=== PATIENT | male | born 1965 | race Caucasian/White ===

== ENCOUNTER 2019-09-19 05:29 | Day surgery (SDC) ==
[2019-09-11 14:01] LABS: INR 0.91; PROTIME 12.4 Seconds (11.0-16.0)
[2019-09-11 14:03] LABS: HEMATOCRIT 42.6 % (42.0-52.0); HEMOGLOBIN 13.8 g/dL (14.0-18.0); MCH 30.4 PG (27-31); MCHC 32.4 g/dL (33-37); MCV 93.8 FL (81-99); MPV 9.8 FL (7.4-10.4); RBC 4.54 XMIL (4.7-6.1); RDW 13.7 % (11.5-14.5); WBC 6.71 X1000 (4.8-10.8)
[2019-09-11 14:06] LABS: AGAP 9; BUN 12 mg/dL (8-22); CALCIUM 9.1 mg/dL (8.8-10.2); CHLORIDE 102 mmol/L (98-107); COSMO 275; CREATININE 0.8 mg/dL (0.7-1.2); ESTIMATED GFR > 60; GLUCOSE 96 mg/dL (70-104); POTASSIUM 4.9 mmol/L (3.5-5.1); SODIUM 138 mmol/L (136-145); TCO2 27 mmol/L (25-35)
[2019-09-19] MEDS ORDERED: PEPCID ONE (05:52)
[2019-09-19] MEDS ORDERED: REGLAN ONE (05:52)
[2019-09-19] MEDS ORDERED: LR 1,000 ML ONE ×2 (05:52→06:44)
[2019-09-19] MEDS ORDERED: KEFZOL 1 GM/D5W 2 GM/100 ML IVPB ONE (05:52)
[2019-09-19] MEDS ORDERED: DIPRIVAN 1% ONE (06:19)
[2019-09-19] MEDS ORDERED: VERSED ONE (06:23)
[2019-09-19] MEDS ORDERED: SENSORCAINE 0.5%-EPI 1:200,000 ONE (06:44)
[2019-09-19] MEDS ORDERED: B & O 16A SUPP ONE (06:44)
[2019-09-19] MEDS ORDERED: ZOFRAN ONE (06:57)
[2019-09-19 07:35] LABS: URINE SOURCE CATH
[2019-09-19 07:39] LABS: BILIRUBIN URINE NEGATIVE (NEGATIVE); BLOOD URINE NEGATIVE (NEGATIVE); COLOR STRAW; GLUCOSE URINE NEGATIVE (NEGATIVE); KETONE URINE NEGATIVE (NEGATIVE); LEUKOCYTES URINE NEGATIVE (NEGATIVE); NITRITE URINE NEGATIVE (NEGATIVE); PROTEIN URINE NEGATIVE (NEGATIVE); SP GRAVITY URINE 1.008; TURBIDITY URINE CLEAR (CLEAR); UROBILINOGEN URINE NORMAL (NORMAL)
[2019-09-19 07:41] LABS: UR EPITHELIAL CELLS <10 /HPF (<10); URINE BACTERIA NEGATIVE /HPF; URINE RBC <10 /HPF (<10); URINE WBC <10 /HPF (<10)
[2019-09-19] MEDS ORDERED: OFIRMEV 1000 MG/ISOTONIC SOLN 1,000 MG/100 ML BOTTLE ONE (08:04)
[2019-09-19] MEDS ORDERED: FENTANYL ONE (08:52)
[2019-09-19] MEDS ORDERED: DEMEROL ONE (09:27)
[2019-09-19] MEDS: DILAUDID ONE ×2 (09:51→10:17)
[2019-09-19] MEDS ORDERED: DITROPAN ONE (10:16)
[2019-09-19] MEDS ORDERED: D5 1/2 NS 1,000 ML ONE (10:36)
[2019-09-19] MEDS ORDERED: MORPHINE IV PRN (11:51)
[2019-09-19] MEDS ORDERED: ZOFRAN IV PRN (12:00)
[2019-09-19] MEDS ORDERED: PHENERGAN PO PRN (12:00)
[2019-09-19] MEDS ORDERED: TYLENOL PO PRN (12:00)
[2019-09-19] MEDS ORDERED: SODIUM CHLORIDE 0.9% INJ PRN (12:00)
[2019-09-19] MEDS ORDERED: NORCO-7.5 PO PRN (12:00)
[2019-09-19] MEDS ORDERED: NORCO-10 PO PRN (12:00)
[2019-09-19] MEDS ORDERED: DILAUDID IV PRN (12:00)
[2019-09-19] MEDS ORDERED: DITROPAN PO PRN (12:00)
[2019-09-19] MEDS ORDERED: BENADRYL LIQUID PO PRN (12:00)
[2019-09-19] MEDS: D5 1/2 NS 1,000 ML IV SCH ×2 (12:00→23:27)
[2019-09-19] MEDS ORDERED: PHENERGAN IV PRN (12:00)
[2019-09-19] MEDS ORDERED: NORCO-5 PO PRN (12:00)
[2019-09-19] MEDS ORDERED: PHENERGAN PR PRN (12:00)
[2019-09-19] MEDS ORDERED: LABETALOL IV PRN (12:00)
[2019-09-19] MEDS ORDERED: OFIRMEV 1000 MG/ISOTONIC SOLN 1,000 MG/100 ML BOTTLE IV PRN (14:30)
[2019-09-19] MEDS: KEFZOL 2 GM/D5W 2 GM/50 ML IVPB IV SCH (15:40)
[2019-09-19] MEDS: COLACE PO SCH (23:27)
[2019-09-19] MEDS: PERIDEX MT SCH (23:27)
[2019-09-20] MEDS: KEFZOL 2 GM/D5W 2 GM/50 ML IVPB IV SCH (04:08)
[2019-09-20 07:11] LABS: HEMATOCRIT 31.1 % (42.0-52.0); HEMOGLOBIN 10.1 g/dL (14.0-18.0); MCH 30.5 PG (27-31); MCHC 32.5 g/dL (33-37); MPV 10.1 FL (7.4-10.4); RBC 3.31 XMIL (4.7-6.1); RDW 13.4 % (11.5-14.5); WBC 5.88 X1000 (4.8-10.8)
[2019-09-20 07:34] LABS: AGAP 9; BUN 9 mg/dL (8-22); CALCIUM 8.1 mg/dL (8.8-10.2); CHLORIDE 100 mmol/L (98-107); COSMO 271; CREATININE 0.8 mg/dL (0.7-1.2); ESTIMATED GFR > 60; GLUCOSE 132 mg/dL (70-104); POTASSIUM 3.9 mmol/L (3.5-5.1); SODIUM 135 mmol/L (136-145); TCO2 26 mmol/L (25-35)
[2019-09-20 07:53] VITALS: BP 123/83
[2019-09-20] MEDS: COLACE PO SCH (09:08)
[2019-09-20] MEDS: PERIDEX MT SCH (09:08)
--- NOTE | 2019-09-20 11:35 | OPERATIVE NOTE ---
PROCEDURE DATE: 09/19/2019 SURGEON: Dr. Loinel Jorge. PREOPERATIVE DIAGNOSES: 1. 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 2. Elevated prostate-specific antigen. POSTOPERATIVE DIAGNOSES: 1. 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 2. Elevated prostate-specific antigen. PROCEDURE NAME: 1. Robotic-assisted laparoscopic prostatectomy. 2. Bilateral pelvic lymph node dissection. 3. Laparoscopic urethral suspension. INDICATIONS: A 54-year-old male with history of rising PSA, who underwent biopsy which revealed multifocal Jennifer 7 prostate adenocarcinoma. He was counseled on the treatment options and wants to proceed with a prostatectomy with pelvic lymph node dissection. He was educated on long-term complications such as urinary incontinence and erectile dysfunction. He has baseline erectile dysfunction and uses sildenafil already. FINDINGS: Watertight vesicourethral anastomosis at 240 mL. DESCRIPTION OF PROCEDURE: After obtaining informed consent, the patient was brought to the operating room. Perioperative antibiotics and general endotracheal anesthesia were administered. He was placed in lithotomy position, prepped and draped in sterile fashion. We attempted to introduce an 18-Romansh Whitney catheter which would not go in easily and that prompted us to introduce an 18-Romansh Whitney catheter. His bladder was drained. I made a small incision in his umbilicus with a 15 blade followed by introduction of Veress needle connected to a saline-filled syringe. I confirmed positive drop test followed by aspiration of fluid from the syringe revealing no evidence of GI contents or blood. I then insufflated his abdominal cavity to 15 mmHg. The trocar sites were demarcated in a standard prostatectomy fashion. Marcaine with epinephrine was used to anesthetize the local sites. This was followed by making an incision with Bovie electrocautery at the supraumbilical level. The trocar was introduced followed by insertion of a robotic camera. We then placed the rest of the trocars under direct vision as he had no evidence of significant adhesions. Following that, he was placed in steep Trendelenburg position and the robot was docked. Once that was done, I began by making an incision in his peritoneum approximately 3 cm above the rectum. His right vas deferens was identified, dissected and transected, followed by identification of the right seminal vesicle and its dissection. I minimized cautery in order to preserve the neurovascular bundle. We performed the same thing on the left side. I then dissected anterior to vas deferens to the level of the prostate and subsequently posterior to seminal vesicles by incising Denonvilliers' fascia and developing perirectal plane. Following that, we turned attention to the bladder that was dropped by incising lateral to each medial umbilical ligament. Once the space of Retzius was developed, I reflected the fat off of his peripelvic fascia. The fascia was incised laterally and the contour of the prostate was followed. Puboprostatic ligaments were divided sharply. Superficial dorsal venous complex was controlled with bipolar electrocautery. Deep dorsal venous complex was controlled with 0 V-Loc suture in a [id number] fashion with anterior periosteal elevation. Following that, we turned our attention to the bladder neck which was incised with monopolar cautery. Once the Whitney catheter came into the view, it was brought into the field and placed on anterior traction. After that was done, the plane was developed between the bladder and the prostate and dissection continued until vas deferens and seminal vesicles came into the view. Following that, we reflected his neurovascular bundles by using Hem-O-Tosin clips. There was a small amount of bleeding but none that is significant and I wanted to preserve his neurovascular bundle as much as we could. Hence, we left it alone at the time. Once the bundles were reflected, a plane was further developed between the prostate and rectum and ultimately the apex of the prostatic tissue was transected. Because he had disease extending to his apex, I did not per performed maximal urethral preservation technique. The urethra was transected and the prostate was delivered and placed into EndoCatch bag. Hemostasis appeared to be fairly adequate other than slow oozing at the level of the neurovascular bundles. Attention was then turned to perform bilateral pelvic lymph node dissection. We started on the right side. The 4th arm was used to reflect the bladder and perivesical fat medially. I identified the right external iliac vein up to its confluence with the common iliac vein. Lymphatic tissue was grasped and carefully dissected with monopolar scissors. We dissected out the lymphatic tissue at the following landmarks: Pelvic sidewall laterally, perivesical fatty tissue medially, obturator vessels and nerve posteriorly, confluence of the external and internal iliac vein superiorly. The lymphatic tissue was delivered en bloc. Pneumoperitoneal pressure was decreased to 3 mmHg and there was no evidence of active bleeding. We placed a piece of Surgicel Snow hemostatic agent in order to decrease the chance of lymphocele. We then performed the same thing on the left side for the pelvic lymph nodes with identical margins. We also placed Surgicel Snow hemostatic agent and decreased pneumoperitoneal pressure prior to that to confirm no active bleeding. Following that, attention was turned to anastomosis. A 3-0 V-Loc suture was used to reapproximate perivesical and periurethral fascia in a running fashion. The sutures were further saved for future laparoscopic urethral suspension. The formal vesicourethral anastomosis was performed with another V-Loc suture running in a clockwise and counterclockwise fashion and ultimately cross- tying the suture. Following that, a fresh 18-Romansh Whitney catheter was introduced. We then performed laparoscopic urethral suspension by introducing previously placed Carlos sutures and threading them through periosteum lateral to the midline pubis. Once that was done, we decreased pneumoperitoneal pressure and inspected for hemostasis. He had a little bit of oozing at the level of the pedicles and instead of cauterizing them, I elected to place Surgicel Snow hemostatic agent. We then tested the vesicourethral anastomosis by instilling 240 mL of sterile fluid via the new fresh Whitney catheter. There was no evidence of anastomotic leakage. The catheter was placed to gravity drainage. The pneumoperitoneal pressure was decreased one more time to 3 mmHg. There was no evidence of active bleeding. Given the fact that he oozed around his neurovascular bundles, I did place a Ishan drain via his 4th arm, which was secured to the skin with 2-0 nylon. He was then extubated and taken to PACU for further recovery. ESTIMATED BLOOD LOSS: 50 mL. COMPLICATIONS: None. SPECIMEN REMOVED: 1. Labeled as prostate gland. 2. Labeled as pelvic lymph nodes. DRAINS: 1. An 18-Romansh Whitney catheter. 2. Ishan drain. DISPOSITION: To PACU and subsequently to the floor for observation with the Whitney catheter to gravity drainage and Ishan drain to bulb suction. cc: Lionel Jorge MD
== END 2019-09-20 09:54 | disposition other institution (70) ==
LOC: OR 05:29 → 4N 05:29 → MERGE 12:30 → OR 09-20 09:54
PROVIDERS: ATTEND Urology

== ENCOUNTER 2019-09-25 16:38 | Inpatient (IN) ==
[2019-09-25 18:07] LABS: BASO# 0.05 X1000 (0.0-0.2); BASO% 0.3 % (0.0-0.8); HEMATOCRIT 35.7 % (42.0-52.0); HEMOGLOBIN 11.4 g/dL (14.0-18.0); IMM GRAN# 0.05 X1000 (0.0-0.04); IMM GRAN% 0.3 % (0.0-0.5); LYMPH# 0.79 X1000 (1.2-3.4); LYMPH% 4.9 % (20.5-51.1); MCH 29.7 PG (27-31); MCHC 31.9 g/dL (33-37); MONO# 1.49 X1000 (0.11-0.59); MONO% 9.3 % (1.7-9.3); MPV 9.7 FL (7.4-10.4); NEUT# 13.68 X1000 (1.4-6.5); NEUT% 85.2 % (42.2-75.2); PLT 597 X1000 (130-400); RBC 3.84 XMIL (4.7-6.1); WBC 16.06 X1000 (4.8-10.8)
[2019-09-25 18:14] LABS: URINE SOURCE CLEAN CATCH
[2019-09-25 18:19] LABS: UR EPITHELIAL CELLS <10 /HPF (<10); URINE BACTERIA NEGATIVE /HPF; URINE RBC TNTC /HPF (<10); URINE WBC 20-40 /HPF (<10)
[2019-09-25 18:20] LABS: BILIRUBIN URINE NEGATIVE (NEGATIVE); BLOOD URINE LARGE (NEGATIVE); COLOR ORANGE; GLUCOSE URINE NEGATIVE (NEGATIVE); KETONE URINE 10 mg/dL (NEGATIVE); LEUKOCYTES URINE SMALL (NEGATIVE); NITRITE URINE NEGATIVE (NEGATIVE); PROTEIN URINE 100 mg/dL (NEGATIVE); SP GRAVITY URINE 1.022; TURBIDITY URINE HAZY (CLEAR); UROBILINOGEN URINE NORMAL (NORMAL)
[2019-09-25 18:26] LABS: ALB/GLOB RATIO 1.1; ALBUMIN 3.9 g/dL (3.5-5.0); CALCIUM 9.2 mg/dL (8.8-10.2); CREATININE 1.4 mg/dL (0.7-1.2); POTASSIUM 4.7 mmol/L (3.5-5.1); TOTAL BILIRUBIN 0.53 mg/dL (0.20-1.00); TOTAL PROTEIN 7.4 g/dL (6.3-8.3)
[2019-09-25] MEDS ORDERED: ROCEPHIN 1 GM in NS 50 ML IV ONE (18:55)
--- NOTE | 2019-09-25 19:15 | PROVIDER DOCUMENTATION ---
This chart was entered by Nga Patel Scribe, acting as scribe for Severiano Byrne MD. HPI-General Adult - General Source: patient - History of Present Illness -Gen Adult Nature of Presenting Problems: pt is a 54yowm presenting w/ post-op complaint. pt had prostatectomy and lymph node removal last tuesday, was seen by [facility]rology to have catheter removed and last night started to have lower abd pain sharp in nature, dull mid abd pain and burning on sides of abd. pain is intermittent and has had more bleeding around JANES tube and on couch where seated. belching improves pain, drinking/eating and movement worsens pain. pt is able to void small amt and had 2 BMs yest. no fever, cough, cp or sob. pt changed JANES tube 1500. Location of Pain/Injury: reports: abdomen Pain Radiation: reports: no radiation Quality of Pain: reports: burning, dull, sharp Severity: reports: moderate Onset/Duration: reports: last night Timing: reports: still present Context/Activities at Onset: reports: none Modifying Factors: improves with: eating, movement, other (drinking) Associated Symptoms: reports: denies symptoms Recently seen or treated by another doctor?: Yes <Severiano Byrne - Last Filed: 09/25/19 19:12> <Ava Leal - Last Filed: 09/25/19 22:15> - General Stated Complaint: POST OP COMPLAINT Time Seen by Provider: 09/25/19 16:40 Allergies/Adverse Reactions: Patient Allergies Allergy/AdvReac Type Severity Reaction Status Date / Time No Known Allergies Allergy Verified 09/19/19 06:07 Home Medications: Home Medication List Medication Instructions Recorded Confirmed Last Taken Type Multivit-Min/FA/Lycopen/Lutein 1 ea PO QAM 09/11/19 09/25/19 09/18/19 History [Centrum Silver Tablet] Sildenafil Citrate [Viagra] 25 mg PO PRN PRN 09/11/19 09/25/19 09/16/19 History Hydrocodone/Acetaminophen [B[place]vue 1 ea PO Q6HR PRN #20 tab 09/20/19 09/25/19 Unknown Rx 7.5-325 Tablet] Oxybutynin [Ditropan] 5 mg PO TID PRN #15 tab 09/20/19 09/25/19 Unknown Rx Review of Systems - Adult - REVIEW OF SYSTEMS - ADULT Constitutional: reports: see HPI, other (post op complaint). denies: chills, fever, fatique Eyes: reports: no symptoms reported Ears, Nose, Mouth & Throat: reports: no symptoms reported Cardiovascular: reports: no symptoms reported Respiratory: reports: no symptoms reported Gastrointestinal: reports: see HPI, abdominal pain. denies: diarrhea, rectal bleeding, vomiting Genitourinary: reports: no symptoms reported Musculoskeletal: reports: no symptoms reported Integumentary: reports: no symptoms reported Neurological: reports: no symptoms reported Psychiatric: reports: no symptoms reported Endocrine: reports: no symptoms reported Hematologic/Lymphatic: reports: no symptoms reported Allergic/Immunologic: reports: no symptoms reported All Other Systems: Reviewed and Negative <Severiano Byrne - Last Filed: 09/25/19 19:12> Past History - Adult - PAST MEDICAL HISTORY-ADULT Review of Records: reports: Nursing Assessment Review, Medications Reviewed, Social history reviewed & non-contributory. Major Childhood Illnesses: reports: denies history Cardiovascular: reports: denies history Respiratory: reports: denies history Gastrointestinal: reports: denies history Obstetrical/Gynecological: reports: denies history Genitourinary: reports: prostate cancer Musculoskeletal: reports: denies history Neurological: reports: denies history Endocrine/Immune: reports: denies history Other Conditions: reports: denies history - PRIOR SURGERIES/PROCEDURES Surgical/Procedure History: reports: recent surgery, other (prostatectomy, lymph nodes removed 09/19/2019) - IMMUNIZATION STATUS Childhood Immunizations: See Nurse Assessment Flu Vaccine: See Nurse Assessment - FAMILY HISTORY Family History: reviewed, not pertinent - SOCIAL HISTORY Smoking: other (former) Substance Use: alcohol Alcohol Use Frequency: occasionally <Severiano Byrne - Last Filed: 09/25/19 19:12> Physical Exam-General - PHYSICAL EXAM-ADULT Initial Vital Signs Reviewed: Yes - CONSTITUTIONAL General Appearance: alert, mild distress. negative: slow to respond, obtunded, combative - EYES Eyes: PERRL/EOMI - HEAD, EARS, NOSE, MOUTH & THROAT HENMT: normocephalic/atraumatic, moist mucous membranes - NECK Neck: non-tender, full range of motion, supple, normal inspection - RESPIRATORY Respiratory: chest non-tender, lungs clear, normal breath sounds - CARDIOVASCULAR Cardiovascular: normal peripheral pulses, regular rate, rhythm - GASTROINTESTINAL (ABDOMEN) Abdominal Exam: normal bowel sounds, soft, no organomegaly, no pulsatile mass, tenderness (periumbilical, low abd on palp), other (healing sx areas on abd, JANES tube in place RLQ). negative: non tender, abnormal bowel sounds, guarding - MUSCULOSKELETAL Back Exam: normal inspection Extremity: normal range of motion, non-tender, normal inspection - SKIN Integumentary: normal color, normal turgor, warm/dry - NEUROLOGIC Neurologic: grossly normal, no motor/sensory deficits - PSYCHIATRIC Psych/Mental Status: normal mood/affect, normal thought content, normal thought process, oriented x 3 <Severiano Byrne - Last Filed: 09/25/19 19:12> Progress - PLAN OF CARE/RESULTS Result Diagrams: 09/25/19 17:21 09/25/19 17:21 - REASSESSMENT Reassessment #1 Time Reassessed: 17:31 Status: other (pt bladder scan was 439) - CONSULTS/PCP/HOSPITALIST Notification #1 *Consult/PCP/Hospitalist*: Saqib Time Discussed: 17:30 Reason/Comments: no answer #2 Consult: Saqib Time Discussed: 18:16 Reason/Comments: no answer #3 Consult: Saqib Time Discussed: 18:51 Reason/Comments: no answer by 1915 <Severiano Byrne - Last Filed: 09/25/19 19:12> - PLAN OF CARE/RESULTS Progress/Plan/Lab Results: Vital Signs - 8 hr 09/25/19 16:54 09/25/19 18:24 Temperature 98.3 F 97.9 F Pulse Rate 89 85 Respiratory Rate 20 15 Blood Pressure 151/102 133/84 O2 Sat by Pulse Oximetry 100 99 Laboratory Results - last 24 hr 09/25/19 09/25/19 09/25/19 17:21 17:21 17:54 WBC 16.06 H D RBC 3.84 L Hgb 11.4 L Hct 35.7 L MCV 93.0 MCH 29.7 MCHC 31.9 L RDW Std Deviation 13.0 Plt Count 597 H MPV 9.7 Immature Gran % (Auto) 0.3 Neut % (Auto) 85.2 H Lymph % (Auto) 4.9 L Craven % (Auto) 9.3 Eos % (Auto) 0.0 Baso % (Auto) 0.3 Immature Gran # (Auto) 0.05 H Neut # (Auto) 13.68 H Lymph # (Auto) 0.79 L Craven # (Auto) 1.49 H Eos # (Auto) 0.00 Baso # (Auto) 0.05 Sodium 137 Potassium 4.7 Chloride 98 Carbon Dioxide 24 L Anion Gap 15 BUN 18 Creatinine 1.4 H Estimated GFR/1.73 m2 53 BUN/Creatinine Ratio 13 Glucose 136 H D Calculated Osmolality 278 Calcium 9.2 Total Bilirubin 0.53 AST 16 ALT 11 Alkaline Phosphatase 86 Total Protein 7.4 Albumin 3.9 Globulin 3.5 Albumin/Globulin Ratio 1.1 Urine Source CLEAN CATCH Urine Color ORANGE Urine Turbidity HAZY Urine pH 6.0 Ur Specific [place] 1.022 Urine Protein 100 A Ur Glucose (Stick) NEGATIVE Ur Ketones (Stick) 10 A Urine Blood LARGE A Urine Nitrite NEGATIVE Urine Bilirubin NEGATIVE Urobilinogen Dipstick NORMAL Urine Leukocytes SMALL A Urine WBC (Auto) 20-40 A Urine RBC (Auto) TNTC A U Epithel Cells (Auto) <10 Urine Bacteria (Auto) NEGATIVE Orders Category Date Time Status Whitney Cath Insertion ORDERED Care 09/25/19 18:[address] ABD/PELVIS W/IV CONT ONLY [CT] Stat Exams 09/25/19 18:54 Completed CBC WITH DIFF [HEME] Stat Lab 09/25/19 17:21 Completed CMP [COMPREHENSIVE METABOLIC PANEL] [CHEM] Stat Lab 09/25/19 17:21 Completed URINALYSIS W/POSS RFLX CULT [URINALYSIS] Stat Lab 09/25/19 17:54 Completed URINE CULTURE [RM] Routine Lab 09/25/19 17:54 Received CefTRIAXONE [Rocephin] 1 gm Med 09/25/19 18:55 Discontinued 0.9% Sodium Chloride Inj [Ns] 50 ml IV NOW Result Diagrams: 09/25/19 17:21 09/25/19 17:21 - REASSESSMENT Reassessment #2 Time Reassessed: 19:00 Status: other (assumed care of this patient at shift change from Dr. Byrne. Awaiting labs and CT at that time.) Reassessment #3 Time Reassessed: 20:40 Status: unchanged (Patient continues to have pain. Awaiting Whitney placement. Elevated WBC and possible abscess on CT. Paging Dr. Cerrato (Urology) for admit.) Reassessment #4 Time Reassessed: 22:13 Status: other (Spoke with Dr. Cerrato who agrees with the need for admission and will see patient in consultation. Spoke with Dr. Mcconnell who will admit patient) <Ava Leal - Last Filed: 09/25/19 22:15> Departure <Severiano Byrne - Last Filed: 09/25/19 19:12> - Departure Date of Disposition Decision: 09/25/19 Time of Disposition Decision: 22:14 Certified Medical Emergency: Emergent - Critical Care Note This patient required my direct & personal management of CC.: No <Ava Leal - Last Filed: 09/25/19 22:15> - Departure DIAGNOSIS: Status post prostatectomy, Urinary retention Disposition: ADMITTED INPATIENT 09 Condition: Stable Referrals and Follow-Ups: Cristina Bray MD [Primary Care Provider] - Attestation - Physician/ PAT Attestation Patient care was provided by Advanced Practice Provider:: No The physician spent face to face time with patient:: Yes Advanced Practice Provider documentation review:: Supervising physician onsite and consulted in the evaluation and care of this patient. The physician did have a face to face encounter with the patient. <Severiano Byrne - Last Filed: 09/25/19 19:12> - Physician/ PAT Attestation Patient care was provided by Advanced Practice Provider:: No The physician spent face to face time with patient:: Yes Advanced Practice Provider documentation review:: Supervising physician onsite and consulted in the evaluation and care of this patient. The physician did have a face to face encounter with the patient. <Ava Leal - Last Filed: 09/25/19 22:15> This chart was documented by the indicated scribe, (Nga Patel Scribe) and accurately reflects the services I performed and decisions made by me, Severiano Byrne MD, as attested by the provider's signature.
--- NOTE | 2019-09-25 19:43 | Diag Imaging Result Doc PS360 ---
CT ABD/PELVIS W/IV CONT ONLY - 09/25/2019 INDICATION: lower abd pain, post op COMPARISON: None FINDINGS: There is some atelectasis in the lung bases but no infiltrates. Heart size is normal. The liver, gallbladder, spleen, pancreas, adrenals, and kidneys are normal. There is some indistinct free fluid in the lower abdomen and pelvis. The largest area measures about 6.5 x 2.9 cm. This is at the left side of the pelvis. There is a surgical drain entering the right side of the pelvis with the tip in the lower left side. Urinary bladder and rectum are normal. There is some trace soft tissue gas in the pelvis and the left femoral canal. There is mild constipation of the colon proximally. IMPRESSION: 1. Scattered pockets of indistinct fluid in the pelvis. Likely small abscesses. 2. Mild constipation. This exam was performed using automated exposure control, adjustment of mA or kV according to patient size, and/or use of iterative reconstruction technique Electronically signed by Hector Parker 09/25/2019 7:41 PM
[2019-09-25 22:26] LABS: URINE SOURCE CATH
[2019-09-25] MEDS ORDERED: NS 1,000 ML IV ONE (22:41)
[2019-09-25] MEDS ORDERED: PERCOCET-10 PO PRN (22:51)
[2019-09-25] MEDS ORDERED: TYLENOL PO PRN (22:51)
[2019-09-25] MEDS ORDERED: ZOFRAN IV PRN (22:51)
[2019-09-25] MEDS ORDERED: DILAUDID IV PRN (22:51)
[2019-09-25 23:11] LABS: BILIRUBIN URINE NEGATIVE (NEGATIVE); BLOOD URINE LARGE (NEGATIVE); COLOR BROWN; GLUCOSE URINE NEGATIVE (NEGATIVE); KETONE URINE 10 mg/dL (NEGATIVE); LEUKOCYTES URINE SMALL (NEGATIVE); NITRITE URINE NEGATIVE (NEGATIVE); PROTEIN URINE 100 mg/dL (NEGATIVE); TURBIDITY URINE TURBID (CLEAR); UR EPITHELIAL CELLS <10 /HPF (<10); URINE BACTERIA NEGATIVE /HPF; URINE RBC TNTC /HPF (<10); URINE WBC TNTC /HPF (<10); UROBILINOGEN URINE NORMAL (NORMAL)
[2019-09-25 23:19] LABS: SP GRAVITY URINE 1.015; URINE CASTS NONE SEEN; URINE CRYSTALS NONE SEEN; URINE SMALL ROUND CELLS NONE SEEN; URINE YEAST PRESENT
--- NOTE | 2019-09-25 23:22 | HISTORY AND PHYSICAL ---
REASON FOR ADMISSION: Two-day history of lower abdominal pain. HISTORY OF PRESENT ILLNESS: Mr. Deng De La Vega is a 54-year-old white male with past medical history of prostate cancer, status post prostatectomy a week ago, hyperlipidemia and reflux disease. He came in today complaining of a 2-day history of suprapubic pain which is intermittent, crampy, nonradiating. No specific aggravating or relieving factors. The following day he said the pain started ascending to his umbilical area and the intensity has increased. It still had the same intermittent nature. He also complains of no dysuria, but said that he had to strain to urinate, and did admit to having bloody urine. He admits to having chills but no fever. No flank pain. No GI complaints other than infrequent stooling. No nausea, vomiting or headaches. No cardiorespiratory complaints. No arthralgia or rash. REVIEW OF SYSTEMS: Twelve-system review was done. Positive findings per HPI. ALLERGIES: No known allergies. HOME MEDICATIONS: He was on Ditropan 5 mg t.i.d.; hydrocodone 10 mg q.6 p.r.n.; Viagra 25 mg p.r.n.; multivitamin tablets once a day. PAST SURGICAL HISTORY: Prostatectomy, tonsillectomy. FAMILY HISTORY: He was adopted. SOCIAL HISTORY: He drinks about 4-5 beers a day and 2 drinks of rum and Coke. DIAGNOSTIC DATA: CT scan of the abdomen and pelvis showed scattered pockets of indistinct fluid in the pelvis, likely small abscesses, and mild constipation. LABORATORY DATA: White count 6000, hemoglobin and hematocrit 11 and 35, platelets 597,000, 85% neutrophils. BUN is 18, creatinine 1.4. Glucose 136. Urinalysis: Large blood, small leukocytes, adj-ivunqpga-bj-count RBCs, and 20-40 WBCs. PHYSICAL EXAMINATION: VITAL SIGNS: Blood pressure 138/89, heart rate 80, respiratory rate is 18, temperature is 98.7 degrees. He is 999% on room air. GENERAL: He is a pleasant, middle-aged white man who is not in acute distress. He is alert and oriented x3. Normal mood and affect. HEENT: Head is normocephalic, atraumatic. Eyes: YOSSI, EOMI. He is anicteric, not pale. ENT and oropharynx exam shows moderate xerostomia, but no exudates or erythema. No central cyanosis. NECK: Supple. No JVD or carotid bruit. No thyromegaly. CHEST: Clear when auscultated with good air entry in both lung mohan. CARDIOVASCULAR: First and second heart sounds heard. No gallops, murmurs or rubs. Rhythm is regular. ABDOMEN: Full, soft, with tenderness confined to the suprapubic area. Questionable rebound. The patient has 4 healing incision sites in suprapubic area and left and right lower quadrant areas. He also has a JANES drain, draining bloody fluid. Bowel sounds are hypoactive. RECTAL: Exam deferred at this time. EXTREMITIES: Distal pulse volumes regular, symmetrical. No edema, clubbing or peripheral cyanosis. NEUROLOGIC: No gross focal deficits. SKIN: Intact. No breakdown, lesion or erythema. The patient has decreased skin turgor. MUSCULOSKELETAL: Exam is grossly normal. ASSESSMENT: 1. Urinary retention secondary to postoperative, in addition to probable postoperative pelvic abscesses. 2. Prostate cancer, status post prostatectomy. 3. Reflux disease. 4. Posthemorrhagic anemia. PLAN: The patient will be started on broad-spectrum antibiotics to cover for enteric pathogens and anaerobes. We will treat the patient symptomatically. Hydrate the patient appropriately. The patient is clinically dehydrated, and will be addressed by giving appropriate crystalloids. We will consult: Dr. Cerrato was notified and Dr. Jorge will be consulted. cc: MD Gail Garcia CRNP Lindsay E. Smith, MD
[2019-09-26] MEDS: NS 1,000 ML IV SCH ×3 (00:40→15:20)
[2019-09-26] MEDS: ZOSYN 3.375 GM in NS 50 ML IV SCH ×4 (00:40→20:25)
[2019-09-26] MEDS: PERICOLACE PO SCH ×4 (01:16→20:25)
[2019-09-26 06:57] LABS: BASO# 0.03 X1000 (0.0-0.2); BASO% 0.3 % (0.0-0.8); EOS# 0.06 X1000 (0.0-0.7); EOS% 0.5 % (0.0-10.0); HEMATOCRIT 30.7 % (42.0-52.0); HEMOGLOBIN 9.5 g/dL (14.0-18.0); IMM GRAN# 0.03 X1000 (0.0-0.04); IMM GRAN% 0.3 % (0.0-0.5); LYMPH# 1.47 X1000 (1.2-3.4); LYMPH% 13.2 % (20.5-51.1); MCH 29.2 PG (27-31); MCHC 30.9 g/dL (33-37); MCV 94.5 FL (81-99); MONO% 13.5 % (1.7-9.3); MPV 9.6 FL (7.4-10.4); NEUT# 8.04 X1000 (1.4-6.5); NEUT% 72.2 % (42.2-75.2); PLT 517 X1000 (130-400); RBC 3.25 XMIL (4.7-6.1); WBC 11.13 X1000 (4.8-10.8)
[2019-09-26 07:16] LABS: AGAP 11; ALB/GLOB RATIO 1.2; ALBUMIN 3.1 g/dL (3.5-5.0); ALKALINE PHOSPHATASE 63 U/L (32-122); BUN 15 mg/dL (8-22); CALCIUM 8.4 mg/dL (8.8-10.2); CHLORIDE 106 mmol/L (98-107); COSMO 282; CREATININE 0.9 mg/dL (0.7-1.2); ESTIMATED GFR > 60; GLUCOSE 105 mg/dL (70-104); GOT 12 U/L (10-34); GPT 8 U/L (10-44); MAGNESIUM 2.2 mg/dL (1.5-2.7); POTASSIUM 4.4 mmol/L (3.5-5.1); SODIUM 141 mmol/L (136-145); TCO2 24 mmol/L (25-35); TOTAL PROTEIN 5.7 g/dL (6.3-8.3)
[2019-09-26] MEDS: MIRALAX PO SCH ×2 (07:51→08:02)
[2019-09-26 10:05] LABS: CREATININE BODY FLUID 1.2 mg/dL
--- NOTE | 2019-09-26 13:45 | PROGRESS NOTE ---
DATE: 09/26/2019 SUBJECTIVE: The patient is feeling much better after placing a Whitney catheter. I had a conversation with Dr. Cerrato, which is the urologist on board, and likely this patient will need to go home with a Whitney catheter. They will take care of it as an outpatient. The patient presented with urinary retention, and the CT scan showed some fluid in the pelvis. He has been placed on antibiotics. He seems to be doing better. Dr. Cerrato started this patient on a full liquid diet. We will monitor. OBJECTIVE: Vital Signs: Temperature 99 degrees, pulse 70, respiratory rate 20, blood pressure 129/77, oxygen saturation 97% on room air. HEENT: Head normocephalic, no trauma. PERRLA. Neck: Supple. No JVD. No masses. Central trachea. Chest: Clear to auscultation. No wheezing. No rales. Abdomen: The abdomen is slightly distended but soft. He has some generalized tenderness, mostly at the level of the suprapubic area. No rebound. He has some wounds on his abdomen and they seem to be healing fine. Also, he has a drain coming out with some serosanguineous discharge. Bowel sounds are present but decreased. Extremities: No edema. No clubbing. No cyanosis. Neurologic: The patient is awake and alert. He is oriented x3. No focal deficits. LABORATORY: WBC 11.1, hemoglobin 9.5, hematocrit 30.7, platelets 517,000. Sodium 141, potassium 4.4, chloride 106, bicarbonate 24, BUN 15, creatinine 0.9, glucose 105. Calcium 8.4. Magnesium 2.2. Albumin 3.1. ASSESSMENT AND PLAN: 1. Urinary retention, likely secondary to the postoperative state. A Whitney catheter has been placed. Urology Department already evaluated this patient. Likely, he will need to be discharged with a Whitney catheter, and they will take care of that as an outpatient. 2. History of prostate cancer, status post prostatectomy. 3. Gastroesophageal reflux disease. Continue with same management. 4. Anemia, normocytic. We will monitor for now. 5. Acute kidney injury, resolved after getting IV fluids. 6. Fluid collection located at the level of the lower abdomen, this is probably expected. No fever. I do not think this is related to abscesses, but Urology Department has been on board. cc: Josse Sanchez MD MTDD
--- NOTE | 2019-09-26 16:58 | CONSULTATION ---
DATE OF CONSULTATION: 09/26/2019 ATTENDING AND REFERRING PHYSICIAN: Hospitalist. CHIEF COMPLAINT: Abdominal pains and urinary retention. HISTORY OF PRESENT ILLNESS: This 54-year-old male was noted to have an elevated PSA on physical exam. His 4K score revealed an elevated risk for aggressive prostate cancer. His prostate biopsies revealed adenocarcinoma, Jennifer grade 3 + 4 in multiple cores. He is 1 week status post laparoscopic robot-assisted radical retropubic prostatectomy with bilateral pelvic lymph node dissection and a urethral suspension. At the time of surgery, the anastomosis could not be completed as tight as desired so a drain was placed. He was going to have the drain removed on the 26 of September. The patient developed severe lower abdominal pains and had to go to the emergency room. A CT scan revealed the drain in place and some fluid collections in the abdomen that was worrisome for abscesses. The patient had a Whitney catheter placed with over 400 mL returned in a very short while and he states all of his pain completely resolved. The patient currently states he is doing well and would like something to eat. Past medical history, surgical history, and social history are documented on his history and physical from 1 week ago. REVIEW OF SYSTEMS: Fourteen point review of systems performed and all negative. PHYSICAL EXAMINATION: General: A normally-developed, well-nourished, age apparent, white male, oriented in all ways and cooperative. HEENT: Normal for age. Lungs: Clear. Cardiovascular: Regular rate and rhythm. Abdomen: With healing wounds. The abdomen is soft, nontender, with no guarding or rebound. The drain is in place in the right lower quadrant, draining serosanguineous fluid. Examination: Normal male, with Whitney catheter in place. Both testes down. Rectal Examination: Deferred. Extremities: No clubbing, cyanosis, or edema. Neurologic: No focal deficits. LABORATORY EVALUATION: He has a white count of 11.13, hemoglobin 9.5, hematocrit of 30.7, platelets are 517,000. Serum electrolytes are normal. BUN 15, creatinine 0.9. IMPRESSION: Status post laparoscopic robot-assisted radical retropubic prostatectomy with postoperative urinary retention that occurred after his Whitney was removed. RECOMMENDATIONS: 1. Check Ishan drain fluid creatinine and if that is normal, serum creatinine, will remove the drain. 2. Keep Whitney catheter in for at least 5 days. He can be discharged with the catheter. This was discussed with the patient. 3. Advance diet as tolerated. Thank you for this consultation. cc: Flo Cerrato MD
[2019-09-27] MEDS: ZOSYN 3.375 GM in NS 50 ML IV SCH ×4 (02:27→21:43)
[2019-09-27 06:23] LABS: HEMATOCRIT 32.6 % (42.0-52.0); HEMOGLOBIN 10.3 g/dL (14.0-18.0); MCH 29.9 PG (27-31); MCHC 31.6 g/dL (33-37); MCV 94.5 FL (81-99); MPV 9.4 FL (7.4-10.4); RBC 3.45 XMIL (4.7-6.1); RDW 13.1 % (11.5-14.5); WBC 15.68 X1000 (4.8-10.8)
[2019-09-27 06:44] LABS: AGAP 12; BUN 8 mg/dL (8-22); CALCIUM 8.1 mg/dL (8.8-10.2); CHLORIDE 102 mmol/L (98-107); COSMO 276; CREATININE 0.7 mg/dL (0.7-1.2); ESTIMATED GFR > 60; GLUCOSE 109 mg/dL (70-104); POTASSIUM 3.8 mmol/L (3.5-5.1); SODIUM 139 mmol/L (136-145); TCO2 25 mmol/L (25-35)
[2019-09-27] MEDS: PERICOLACE PO SCH ×2 (09:08→21:43)
[2019-09-27] MEDS: MIRALAX PO SCH (09:08)
--- NOTE | 2019-09-27 12:18 | GENERAL SURGERY CONSULTATION ---
DATE: 09/27/2019 REQUESTING PHYSICIAN: Dr. Cerrato. SURGEON CONSULTATION: Giovanni Abarca MD. REASON FOR CONSULTATION: Abdominal pain, postop prostatectomy and abdominal fluid collection. HISTORY OF PRESENT ILLNESS: This is a 54-year-old male who underwent robotic radical prostatectomy 8 days ago at this hospital. He was discharged on postop day 1 in stable condition. He returned to the clinic this past Tuesday to have his catheter removed. However, after this was done, he developed urinary retention with increasing abdominal cramping and pain. He returned to the emergency room on 09/25/2019 and found to be in urinary retention. A Whitney catheter was placed and he was admitted. CT scan was obtained which did show the dilated bladder as well as a fluid collection, the largest of which measures 6.5 x 2.9 cm in the lower abdomen and pelvis that is concerning for abscess. The patient says his severe abdominal cramping was significantly relieved or resolved after the catheter was replaced. However, he continues to have left lower abdominal pain when he gets up and moves around. He denies nausea or vomiting now, but he did have some prior to his Whitney catheter being replaced. He had a low-grade fever. He has not had any fevers recorded over 99.5. He is having bowel movements. He is eating. His drain was removed after checking for creatinine which was normal. The drainage was described as mostly bloody and some yellowish fluid. PAST MEDICAL HISTORY: 1. Hypercholesterolemia. 2. Prostate cancer. PAST SURGICAL HISTORY: 1. Robotic radical prostatectomy. 2. Tonsillectomy. HOME MEDICATIONS: 1. Diprivan. 2. Hydrocodone. 3. Viagra. 4. Multivitamins. ALLERGIES: No known drug allergies. SOCIAL HISTORY: He drinks 4 to 5 beers a day as well as some liquor. No tobacco or illicit drug use. FAMILY HISTORY: He was adopted so this is unknown. REVIEW OF SYSTEMS: Ten systems reviewed and negative except as noted above. PHYSICAL EXAMINATION: Vital Signs: Temperature 98.5 degrees, pulse 81, respirations 18, blood pressure 110/74, O2 saturation 97%. General: Well-developed, well-nourished male who looks his stated age. HEENT: Normocephalic, atraumatic. Extraocular muscles intact. Pupils equal, round, reactive to light. Sclerae anicteric. Mucous membranes are moist. Neck: Supple. No thyromegaly. Lymphatic: No cervical, supraclavicular or periumbilical lymph nodes appreciated. Cardiovascular: Regular rate and rhythm. Respiratory: Bilateral equal breath sounds. No work of breathing. Gastrointestinal: Soft, nondistended. No organomegaly or mass. Well-healed laparoscopic incisions. He is focally tender in the left lower quadrant with some mild guarding. The drain site in the right lower quadrant is mostly serous, but there seems to be a hint of greenish or bilious tinge to it. Extremities: No clubbing, cyanosis, or edema. Musculoskeletal: Moves all extremities equally and well. LABORATORY DATA: White blood cell count was 16,000 on admission, down to 11,000 yesterday, back up to 15,000 today. Electrolytes reviewed and unremarkable. IMAGING: CT scan on 09/25/2019, as described above. ASSESSMENT AND PLAN: A 54-year-old male status post robotic prostatectomy with persistent left lower abdominal pain, leukocytosis and a fluid collection concerning for abscess. We will send him down for percutaneous CT-guided drainage and culture of this fluid. Thank you for the consultation. We will follow along. cc: Giovanni Abarca MD
--- NOTE | 2019-09-27 14:14 | PROGRESS NOTE ---
DATE: 09/27/2019 SUBJECTIVE: The patient is resting comfortably in bed. I evaluated this patient this morning. He is complaining of lower abdominal pain. He has been evaluated by Surgery Department. This patient is status post prostatectomy and he has some fluid collection in his lower abdomen which hopefully is going to be drained and sent for culture today. PHYSICAL EXAMINATION: Vital Signs: Temperature 98.4 degrees, pulse 84, respiratory rate 18, blood pressure 117/75, oxygen saturation 98 on room air. HEENT: Head normocephalic. No trauma. PERRLA. Neck: Supple. No JVD. No masses. Central trachea. Chest: Clear to auscultation. No wheezing. No rales. Abdomen: Soft, tenderness to palpation especially on the left lower abdomen. No signs of peritoneal irritation. He has some wounds on his abdomen and they seem to be healing fine. The drain has been removed. Bowel sounds are present but decreased. Extremities: No edema. No clubbing. No cyanosis. Neurological: Patient is awake, alert, oriented today. LABORATORY: WBC 15.6, hemoglobin 10.3, hematocrit 32.6, platelets 589,000 sodium 139, potassium 3.8, chloride 102, bicarbonate 25, BUN 8, creatinine 0.7 glucose 109, calcium 8.1. ASSESSMENT AND PLAN: 1. Urinary retention, likely secondary to postoperative state. The Whitney catheter has been placed. Urology department on board. 2. History of prostate cancer status post prostatectomy with some fluid in the abdominal cavity concerning for abscess. These hopefully will be drained today at some point and we will send this for a culture. 3. Gastroesophageal reflux disease. Continue with same management. 4. Anemia, normocytic. We will monitor for now. 5. Acute kidney injury, resolved. cc: Josse Sanchez MD
--- NOTE | 2019-09-27 15:50 | Diag Imaging Result Doc PS360 ---
EXAM: CT GUIDE ABD DRAINAGE W/CATH (bilateral pigtail catheter placement) INDICATION: LLQ pain fluid collection; leukocytosis, post op TECHNIQUE: COMPARISON: None. FINDINGS: Prior to the procedure, a CT of the abdomen and pelvis with contrast was performed. The left lower quadrant fluid collection seen on the previous study with again identified. It has increased in size and was more dense indicating internal blood products. There is a second collection of fluid low in the pelvis on the right extending through the inguinal ring on the right that has also increased in size slightly. There is bibasilar atelectasis that has worsened since the previous study. The drainage catheter that was seen on the previous study had been removed. Risks, benefits, and alternatives were discussed with the patient and informed consent was obtained. First the left lower quadrant was prepped and draped in sterile fashion and local anesthesia was achieved with 1% lidocaine solution. Using CT guidance, a 10-Turkmen pigtail drainage catheter was inserted into the hyperdense left lower quadrant fluid collection and dark red fluid was aspirated. A sample was sent for laboratory analysis. Then the right suprapubic region was prepped and draped in sterile fashion and local anesthesia was achieved with 1% lidocaine solution. Using CT guidance, a 10-Turkmen pigtail drainage catheter was inserted into the smaller lower pelvic fluid collection on the right. Dark red fluid was also aspirated from this site and a sample was sent for laboratory analysis. There were no known complications. IMPRESSION: Technically successful placement of two pigtail drainage catheters in fluid collections in the left lower quadrant/pelvis as well as the right pelvis as described. Electronically signed by Tyrese Patel 09/27/2019 3:48 PM
[2019-09-28] MEDS: ZOSYN 3.375 GM in NS 50 ML IV SCH ×4 (03:19→21:10)
[2019-09-28 06:38] LABS: BASO# 0.04 X1000 (0.0-0.2); BASO% 0.5 % (0.0-0.8); EOS# 0.22 X1000 (0.0-0.7); EOS% 2.9 % (0.0-10.0); HEMATOCRIT 28.2 % (42.0-52.0); HEMOGLOBIN 8.8 g/dL (14.0-18.0); IMM GRAN# 0.02 X1000 (0.0-0.04); IMM GRAN% 0.3 % (0.0-0.5); LYMPH# 1.64 X1000 (1.2-3.4); LYMPH% 21.4 % (20.5-51.1); MCH 29.1 PG (27-31); MCHC 31.2 g/dL (33-37); MCV 93.4 FL (81-99); MONO# 0.96 X1000 (0.11-0.59); MONO% 12.5 % (1.7-9.3); MPV 9.3 FL (7.4-10.4); NEUT% 62.4 % (42.2-75.2); PLT 568 X1000 (130-400); RBC 3.02 XMIL (4.7-6.1); RDW 12.7 % (11.5-14.5); WBC 7.68 X1000 (4.8-10.8)
[2019-09-28 07:08] LABS: AGAP 7; BUN 7 mg/dL (8-22); CALCIUM 8.3 mg/dL (8.8-10.2); CHLORIDE 104 mmol/L (98-107); COSMO 275; CREATININE 0.8 mg/dL (0.7-1.2); ESTIMATED GFR > 60; GLUCOSE 97 mg/dL (70-104); POTASSIUM 4.1 mmol/L (3.5-5.1); SODIUM 139 mmol/L (136-145); TCO2 28 mmol/L (25-35)
[2019-09-28] MEDS: PERICOLACE PO SCH ×2 (09:43→21:10)
--- NOTE | 2019-09-28 09:43 | GENERAL SURGERY PROGRESS NOTE ---
DATE: 09/28/2019 SUBJECTIVE: The patient feels much better. He reports feeling immediate relief after drainage procedures yesterday. OBJECTIVE: He is afebrile. Vital signs are stable.General: He is awake, alert, and oriented x3. No acute distress. Gastrointestinal: Soft, nondistended. He is certainly less tender in the left lower quadrant. His bilateral lower quadrant drains appear to have bloody output. The amount output recorded is 315 mL. LABORATORY: White cell count 7.6, hemoglobin 8.8, hematocrit 28.2. Electrolytes reviewed and unremarkable. ASSESSMENT AND PLAN: A 54-year-old male with postoperative hematoma after radical prostatectomy. These have been percutaneously drained. We will leave the drains in at least another 24 hours. Cultures have been obtained. We will follow these results. He will remain on Zosyn for now. Dr. Bella will round on him over the weekend. cc: Giovanni Abarca MD
[2019-09-28] MEDS: MIRALAX PO SCH (09:44)
--- NOTE | 2019-09-28 14:29 | PROGRESS NOTE ---
DATE: 09/28/2019 SUBJECTIVE: The patient seems to be more stable. He is not complaining of too much abdominal pain today. Yesterday to speak pigtail drainage catheters were placed at the level of the lower abdomen/left lower quadrant. It looks like some serosanguineous discharge is coming out of there, so far negative culture. Surgery on board as well as urology department. OBJECTIVE: Vital Signs: Temperature 98.3 degrees, pulse 80, respiratory rate 20, blood pressure 113/76. Oxygen saturation 98 on room air. HEENT: Head normocephalic. No trauma. PERRLA. Neck: Supple. No JVD. No masses. Central trachea. Chest: Clear to auscultation. No wheezing. No rales. Abdomen: Soft. Some tenderness to palpation at the level of the lower abdomen. No signs of peritoneal irritation. He has 2 drains coming out from his lower abdomen, but no signs of purulent material. He has also multiple small wounds on his abdomen and they seems to be healing fine. Bowel sounds are present but decreased. Extremities: No edema, no clubbing, no cyanosis. Neurological: The patient is awake, alert. He is oriented. LABORATORY: WBC 7.6, hemoglobin 8.8, hematocrit 28.2, platelets 568,000. Sodium 139, potassium 4.1, chloride 104, bicarbonate 28, BUN 7, creatinine 0.8, glucose 97, calcium 8.3. ASSESSMENT AND PLAN: 1. Urinary retention, likely secondary to the postoperative state. Whitney catheter has been placed. He has a history of prostate cancer status post prostatectomy. 2. History of prostate cancer status post prostatectomy, with some fluid in the abdominal cavity, likely a hematoma that has been drained some with a 2 pigtails placed yesterday, surgery on board as well as urology department. 3. Gastroesophageal reflux disease. Continue with same management. 4. Anemia, normocytic. Continue to monitor. 5. Acute kidney injury, resolved. cc: Josse Sanchez MD
[2019-09-29 06:38] LABS: HEMATOCRIT 28.5 % (42.0-52.0); HEMOGLOBIN 9.1 g/dL (14.0-18.0)
[2019-09-29] MEDS: ZOSYN 3.375 GM in NS 50 ML IV SCH ×4 (08:15→21:06)
[2019-09-29] MEDS: PERICOLACE PO SCH ×2 (09:47→21:06)
[2019-09-29] MEDS: MIRALAX PO SCH (09:48)
--- NOTE | 2019-09-29 15:17 | PROGRESS NOTE ---
DATE: 09/29/2019 SUBJECTIVE: The patient seems to be stable. He is still draining some serosanguineous material through the pigtails, we will monitor this patient closely. Hopefully, we will remove these in the next 24 to 48 hours, so he can go home. Cultures negative so far. OBJECTIVE: Vital Signs: Temperature 98.3 degrees, pulse 72, respiratory rate 18, blood pressure 116/77, oxygen saturation 100% on room air. HEENT: Head normocephalic, no trauma, PERRLA. Neck: Supple. No JVD. No masses. Central trachea. Chest: Clear to auscultation. No wheezing. No rales. Abdomen: Soft, some tenderness to palpation at the level of the lower abdomen, but no signs of peritoneal irritation. He seems to be better. He has 2 drains with some serosanguineous material. He also has multiple wounds on his abdomen and they seem to be healing okay. Bowel sounds present. Extremities: No edema, no clubbing, no cyanosis. Neurological: The patient is awake, alert. He is oriented. LABORATORY: Hemoglobin 9.1, hematocrit 28.5. ASSESSMENT AND PLAN: 1. Urinary retention, likely secondary to the postoperative state. Whitney catheter has been placed. He has a history of prostate cancer status post prostatectomy. 2. History of prostate cancer status post prostatectomy with some fluid in the abdominal cavity, likely a hematoma that has been drained. He is status post 2 pigtails placed, postoperative day number 2. Surgery on board as well as Urology Department. 3. Gastroesophageal reflux disease. Continue with the same management. 4. Anemia, normocytic. Continue to monitor. 5. Acute kidney injury, resolved. cc: Josse Sanchez MD
[2019-09-30] MEDS: ZOSYN 3.375 GM in NS 50 ML IV SCH ×3 (01:54→13:46)
[2019-09-30 06:45] LABS: HEMOGLOBIN 9.2 g/dL (14.0-18.0); MCH 29.5 PG (27-31); MCHC 31.7 g/dL (33-37); MCV 92.9 FL (81-99); MPV 8.9 FL (7.4-10.4); RBC 3.12 XMIL (4.7-6.1); RDW 13.2 % (11.5-14.5); WBC 8.06 X1000 (4.8-10.8)
[2019-09-30 07:10] LABS: AGAP 8; BUN 6 mg/dL (8-22); CALCIUM 8.8 mg/dL (8.8-10.2); CHLORIDE 105 mmol/L (98-107); COSMO 275; CREATININE 0.8 mg/dL (0.7-1.2); ESTIMATED GFR > 60; GLUCOSE 93 mg/dL (70-104); POTASSIUM 3.9 mmol/L (3.5-5.1); SODIUM 139 mmol/L (136-145); TCO2 26 mmol/L (25-35)
[2019-09-30] MEDS: PERICOLACE PO SCH (08:50)
[2019-09-30] MEDS: MIRALAX PO SCH ×2 (08:51→08:52)
--- NOTE | 2019-09-30 10:08 | GENERAL SURGERY PROGRESS NOTE ---
DATE: 09/30/2019 Mr. De La Vega is afebrile, feels good, and wants to go home. He had almost no drainage from the left side so we pulled it out. We will check and see how much he has today from the right, and potentially pull it out later, providing him with the opportunity to be discharged. cc: Gutierrez Bella MD
[2019-09-30 11:46] VITALS: BP 128/85
--- NOTE | 2019-09-30 14:14 | GENERAL SURGERY PROGRESS NOTE ---
DATE: 09/30/2019 Had no significant drainage from his right lower quadrant drain. He is afebrile. We pulled out. His hemoglobin is stable. So far as I am concerned, he could be discharged. He is to follow up with Dr. Cerrato. cc: Gutierrez Bella MD
--- NOTE | 2019-09-30 15:45 | DISCHARGE SUMMARY ---
ADMISSION DATE: 09/25/2019 DISCHARGE DATE: 09/30/2019 ADMITTING DIAGNOSES: 1. Urinary retention secondary to postop state. 2. Prostate cancer status post prostatectomy. 3. Gastroesophageal reflux disease. 4. Anemia. 5. Acute kidney injury resolved. 6. Left lower quadrant fluid collection. CONSULTANTS: Dr. Flo Cerrato. Dr. Giovanni Abarca. DIAGNOSTICS: 1. CT of the abdomen and pelvis revealed scattered pockets of indistinct fluid in the pelvis likely abscesses, mild constipation 09/25/2019. 2. 09/27/2019 CT guided abdominal drainage with pigtail catheter placement in the left lower quadrant as well as right pelvis. 3. Microbiology, blood cultures x2 revealed no growth. 4. Urine culture revealed no growth. 5. Aspirate abdomen left lower quadrant and right pelvis revealed no growth. HOSPITAL COURSE: Mr. De La Vega presented to the emergency room complaining of 2 days of abdominal pain and suprapubic pain. He was 1 week status post prostatectomy for prostate cancer. CT scan revealed pockets of indistinct fluid in the pelvis likely small abscesses. On September [address]-guided abdominal drainage with bilateral pigtail catheters placed. Cultures returned negative to drainage as well as blood. He did have some urinary retention. Left lower quadrant drain was pulled as he had scant drainage both pigtails were removed on the per General Surgery. He did have some urinary retention, Whitney catheter was placed and he will be discharged with catheter and a followup with Dr. Cerrato in the morning for Whitney removal and voiding trial. He was noted to have a creatinine of 1.4 on admission after hydration and Whitney was placed, creatinine has remained 0.7 to 0.8 throughout the hospitalization. DISCHARGE PHYSICAL EXAM: Vital signs: Blood pressure is 128/85 with a heart rate of 84, respirations 16, temperature is 98 degrees with room air saturations 99%. Cardiovascular: Regular rate and rhythm. S1 and S2 appreciated. Pulmonary: Breath sounds are clear. No increased work of breathing noted. Chest rise falls symmetric with respiration. Abdomen: Soft, nontender, nondistended with bowel sounds in all 4 quadrants. Abdominal wounds are clear with no drainage. : Whitney is patent to bedside bag. Neurologic: He is alert and oriented x3. DISCHARGE MEDICATIONS: 1. Viagra as directed. 2. MiraLAX 17 g daily p.r.n. constipation. 3. Ditropan 5 mg as directed. 4. Centrum Silver 1 p.o. daily. 5. [place] 7.5 q.6 hours p.r.n. Patient will not be discharged on antibiotics as he received 5 days of antibiotics while in the hospital. FOLLOWUP: 1. Dr. Jorge. He is to call the office in the morning, at that time he will be scheduled for a voiding trial. 2. Dr. Cristina Bray, his primary care physician as needed. He was instructed to call to be seen sooner or return to the ER for any temperature greater than 101, any shortness of breath, productive cough, any chest pain or palpitations, nausea, vomiting, diarrhea, constipation, any black or bloody vomitus or stools any hematuria or for any questions or concerns that he may have. He is being discharged home in stable condition with family members. TIME SPENT: Greater than 30 minutes. Dictated by JANIE Freitas for Josse Sanchez MD cc: MD Josse Sparrow MD
--- NOTE | 2019-10-01 04:34 | GENERAL SURGERY PROGRESS NOTE ---
DATE: 09/29/2019 Mr. De La Vega is afebrile, heart rate 73, blood pressure 127/81. He had still quite a bit of drainage out his drains. They had 150 listed out of drain #2, and some other quantity out of the other drain; I am not sure if it is 45 or 120, but regardless he has enough to continue to keep the drains in place. His hemoglobin is 9.1, hematocrit 28.5. So we will continue with the drains at least 24 more hours. cc: Gutierrez Bella MD
== END 2019-09-30 15:53 | disposition home or self-care (01) | DRG 699 ==
LOC: ED 16:38 → SUATTDRO 16:39 → 4N 09-26 00:06
PROVIDERS: ATTEND Internal Medicine